=== PATIENT | female | born 1960 | race Hispanic/Latino ===

== ENCOUNTER 2018-08-31 20:12 | Emergency (ER) | payer SELFPAY ==
[~2018-08-31] VITALS: Ht 160 cm; Wt 63.0 kg
[~2018-08-31 20:12] MED LIST: LISINOP/HCTZ1 TA2 PO; NAPROSYN500 MG OR; NO HOME MEDS
[2018-08-31 20:57] LABS: HEMATOCRIT 41.1 % (37.0-47.0); HEMOGLOBIN 14.1 g/dl (12.0-16.0); IMMATURE GRANULOCYTES 0.3 % (0.0-5.0); MEAN CELL VOLUME 99.3 fL CALC (80.0-100.0); MEAN CORPUSCULAR HGB 34.1 pG CALC (26.0-32.0); MEAN CORPUSCULAR HGB CONC 34.3 g/L CALC (32.0-36.0); NEUT# 2.14 thou/uL (2.00-7.15); RED BLOOD COUNT 4.14 mill/uL (4.20-5.60)
[2018-08-31 20:58] LABS: URINE BILIRUBIN - DIPSTICK NEGATIVE (NEGATIVE); URINE BLOOD DIPSTICK NEGATIVE (NEGATIVE); URINE COLOR YELLOW; URINE GLUCOSE - DIPSTICK NEGATIVE (NEGATIVE); URINE KETONE NEGATIVE (NEGATIVE); URINE LEUK ESTERASE NEGATIVE (NEGATIVE); URINE NITRITE - DIPSTICK NEGATIVE (Negative); URINE PH 7.5 (4.5-8.0); URINE PROTEIN - DIPSTICK NEGATIVE (NEG-TRACE); URINE SPECIFIC GRAVITY 1.015; URINE UROBILINOGEN - DIPSTICK 0.2 E.U./dL (0.2)
[2018-08-31 21:11] LABS: ALBUMIN 4.6 g/dL (3.2-5.0); ALKALINE PHOSPHATASE 200 u/l (38-126); ANION GAP 17 (6-22 (CALC)); BILIRUBIN, TOTAL 1.2 mg/dL (0.0-1.4); BUN 7 mg/dL (7-17); BUN/CREATININE RATIO 22 (12-20 (CALC)); CARBON DIOXIDE 25 mmol/l (22-30); CHLORIDE 100 mmol/l (95-108); CPK 376 u/l (30-165); CREATININE 0.3 mg/dL (0.5-1.0); GFR > 60 ML/MIN (>=60 (CALC)); GFR FOR AFR.AMER. > 60 ML/MIN (>=60 (CALC)); POTASSIUM 3.1 mmol/l (3.5-5.1); SGOT/AST 421 u/l (14-36); SODIUM 139 mmol/l (137-146); TOTAL PROTEIN 8.8 g/dL (6.3-8.2)
[2018-08-31 21:23] LABS: MYOGLOBIN 37 ng/mL (0 - 62)
[2018-08-31] MEDS ORDERED: POT CHLORIDE10 ME5 PO (22:32)
[2018-08-31] MEDS ORDERED: ANTIVERT PO (22:32)
[2018-08-31 22:55] VITALS: BP 151/81
== END 2018-08-31 22:55 | disposition home or self-care (01) | DRG 149 ==
LOC: ED 20:12
PROVIDERS: Family Medicine
DX: R42 Dizziness and giddiness (principal); E87.6 Hypokalemia; R74.8 Abnormal levels of other serum enzymes; I10 Essential (primary) hypertension

== ENCOUNTER 2019-09-14 08:52 | Emergency (ER) | payer OTHER ==
[~2019-09-14 08:52] MED LIST changes: +ANTIVERT PO; +POT CHLORIDE10 ME5 PO
[2019-09-14] MEDS ORDERED: VOLTAREN75 MG PO (10:17)
[2019-09-14] MEDS ORDERED: ORPHENADRINE100 MG PO (10:17)
[2019-09-14 10:28] VITALS: BP 152/83
== END 2019-09-14 10:25 | disposition home or self-care (01) ==
LOC: ED 08:52
DX: S16.1XXA Strain of muscle, fascia and tendon at neck level, initial encounter (principal); M47.812 Spondylosis without myelopathy or radiculopathy, cervical region; I10 Essential (primary) hypertension; X58.XXXA Exposure to other specified factors, initial encounter

== ENCOUNTER 2020-10-15 08:02 | Day surgery (SDC) | payer OTHER ==
[~2020-10-15 08:02] MED LIST changes: +ORPHENADRINE100 MG PO; +VOLTAREN75 MG PO
[2020-10-15 10:07] VITALS: BP 142/72
== END 2020-10-15 10:31 | disposition home or self-care (01) ==
LOC: ENDO 08:02
PROVIDERS: ATTEND Surgery
DX: Z12.11 Encounter for screening for malignant neoplasm of colon (principal); K64.8 Other hemorrhoids; I10 Essential (primary) hypertension

== ENCOUNTER 2020-11-16 07:59 | Emergency (ER) | payer OTHER ==
[2020-11-16 09:59] VITALS: BP 120/70
== END 2020-11-16 10:13 | disposition home or self-care (01) ==
LOC: ED 07:59
DX: J06.9 Acute upper respiratory infection, unspecified (principal); I10 Essential (primary) hypertension; Z20.822 Contact with and (suspected) exposure to COVID-19

== ENCOUNTER 2021-03-31 16:19 | Emergency (ER) | payer SELFPAY ==
[~2021-03-31] VITALS: Ht 160 cm; Wt 61.0 kg
[2021-03-31] MEDS ORDERED: VITAMIN D1000 UNIT PO (17:16)
[2021-03-31] MEDS ORDERED: GENTAMICIN SULF5 ML OS (18:20)
[2021-03-31] MEDS ORDERED: CEPHALEXIN500 MG PO (18:20)
[2021-03-31] MEDS ORDERED: (None)3.5 GM OS (18:20)
[2021-03-31] MEDS ORDERED: FLONASE AL50 MCG/ACT (18:20)
[2021-03-31 18:29] VITALS: BP 166/88
== END 2021-03-31 18:29 | disposition home or self-care (01) | DRG 153 ==
LOC: ED 16:19
DX: J32.9 Chronic sinusitis, unspecified (principal); H10.9 Unspecified conjunctivitis; I10 Essential (primary) hypertension

== ENCOUNTER 2021-12-12 07:34 | Emergency (ER) | payer OTHER ==
[~2021-12-12] VITALS: Ht 160 cm; Wt 68.0 kg
[2021-12-12] VITALS (7 sets, daily range): BP systolic 122–172; BP diastolic 70–98
[~2021-12-12 07:34] MED LIST changes: +(None)3.5 GM OS; +CEPHALEXIN500 MG PO; +FLONASE AL50 MCG/ACT; +GENTAMICIN SULF5 ML OS; +VITAMIN D1000 UNIT PO
[2021-12-12] MEDS ORDERED: PREDNISONE20 MG PO (09:38)
[2021-12-12] MEDS ORDERED: EC-NAPROXEN500 MG PO (09:38)
[2021-12-12] MEDS ORDERED: VENTOLIN HFA108 MCG PO (09:38)
== END 2021-12-12 10:58 | disposition home or self-care (01) | DRG 153 ==
LOC: ED 07:34
DX: J32.9 Chronic sinusitis, unspecified (principal); R51.9 Headache, unspecified; M79.10 Myalgia, unspecified site; H74.8X2 Other specified disorders of left middle ear and mastoid; I10 Essential (primary) hypertension; Z20.822 Contact with and (suspected) exposure to COVID-19

== ENCOUNTER 2022-03-17 09:32 | Emergency (ER) | payer OTHER ==
[2022-03-17] VITALS (7 sets, daily range): BP systolic 135–156; BP diastolic 82–95
[~2022-03-17] VITALS: Ht 160 cm; Wt 65.0 kg
[~2022-03-17 09:32] MED LIST changes: +EC-NAPROXEN500 MG PO; +PREDNISONE20 MG PO; +VENTOLIN HFA108 MCG PO
[2022-03-17] MEDS ORDERED: ZPAK PO (10:39)
[2022-03-17] MEDS ORDERED: PROAIR HFA IN (10:39)
[2022-03-17] MEDS ORDERED: PROVENTIL HFA108 MCG PO (10:48)
[2022-03-17] MEDS ORDERED: FLONASE AL50 MCG/ACT (11:11)
== END 2022-03-17 11:16 | disposition home or self-care (01) | DRG 179 ==
LOC: ED 09:32
DX: U07.1 COVID-19 (principal); I10 Essential (primary) hypertension

== ENCOUNTER 2022-06-20 09:03 | Observation (INO) | payer OTHER ==
[~2022-06-20] VITALS: Ht 162.6 cm; Wt 71.9 kg
[2022-06-20] VITALS (24 sets, daily range): BP systolic 88–144; BP diastolic 49–77
[~2022-06-20 09:03] MED LIST changes: +PROAIR HFA IN; +PROVENTIL HFA108 MCG PO; +ZPAK PO
[2022-06-20 09:47] LABS: BASO% 0.6 % (0-3); EOS% 0.4 % (0-8); LYMPH% 22.7 % (15-41); MEAN CELL VOLUME 107.8 fL CALC (80.0-100.0); MEAN CORPUSCULAR HGB 35.6 pG CALC (26.0-32.0); MONO% 7.1 % (2-13); NEUT# 3.55 thou/uL (2.00-7.15); NEUT% 68.2 % (42-76); RED BLOOD COUNT 2.7 mill/uL (4.20-5.60); RED CELL DISTRI WIDTH 15.6 % (11.5-15.5)
[2022-06-20 10:07] LABS: HEMATOCRIT 29.1 % (37.0-47.0); HEMOGLOBIN 9.6 g/dl (12.0-16.0)
[2022-06-20 10:12] LABS: ALKALINE PHOSPHATASE 120 u/l (38-126); ANION GAP 10 (6-22 (CALC)); BILIRUBIN, TOTAL 0.7 mg/dL (0.02-1.3); CARBON DIOXIDE 27 mmol/l (22-30); CHLORIDE 103 mmol/l (95-108); CREATININE 0.6 mg/dL (0.5-1.0); GFR FOR AFR.AMER. > 60 ML/MIN (>=60 (CALC)); GFR OTHER RACES > 60 ML/MIN (>=60 (CALC)); POTASSIUM 3.9 mmol/l (3.5-5.1); SGOT/AST 162 u/l (9-36); SODIUM 137 mmol/l (137-146)
[2022-06-20 10:19] LABS: ALBUMIN 2.8 g/dL (3.2-5.0); BUN 33 mg/dL (8-23); BUN/CREATININE RATIO 55 (12-20 (CALC)); TOTAL PROTEIN 5.9 g/dL (6.3-8.2)
[2022-06-20 18:55] LABS: HEMATOCRIT 25.4 % (37.0-47.0); HEMOGLOBIN 8.4 g/dl (12.0-16.0)
[2022-06-21 00:43] VITALS: BP 110/73
[2022-06-21 03:19] VITALS: BP 116/69
[2022-06-21 04:00] VITALS: BP 116/69
[2022-06-21 04:33] LABS: HEMOGLOBIN 9.5 g/dl (12.0-16.0); MEAN CELL VOLUME 101.8 fL CALC (80.0-100.0); MEAN CORPUSCULAR HGB 33.3 pG CALC (26.0-32.0); MEAN CORPUSCULAR HGB CONC 32.8 g/dL CAL (32.0-36.0); RED BLOOD COUNT 2.85 mill/uL (4.20-5.60); RED CELL DISTRI WIDTH 17.6 % (11.5-15.5)
[2022-06-21 04:51] LABS: ALKALINE PHOSPHATASE 93 u/l (38-126); ANION GAP 3 (6-22 (CALC)); BILIRUBIN, TOTAL 0.9 mg/dL (0.02-1.3); CARBON DIOXIDE 27 mmol/l (22-30); CHLORIDE 111 mmol/l (95-108); CREATININE 0.5 mg/dL (0.5-1.0); GFR FOR AFR.AMER. > 60 ML/MIN (>=60 (CALC)); GFR OTHER RACES > 60 ML/MIN (>=60 (CALC)); MAGNESIUM 1.9 mg/dL (1.6-2.3); POTASSIUM 3.8 mmol/l (3.5-5.1); SGOT/AST 105 u/l (9-36); SODIUM 137 mmol/l (137-146); TOTAL PROTEIN 4.8 g/dL (6.3-8.2)
[2022-06-21 04:53] LABS: ALBUMIN 2.2 g/dL (3.2-5.0); BUN 13 mg/dL (8-23); BUN/CREATININE RATIO 26 (12-20 (CALC))
[2022-06-21 06:31] VITALS: BP 117/78
[2022-06-21 10:04] VITALS: BP 120/63
[2022-06-21 10:33] LABS: HEMOGLOBIN 8.6 g/dl (12.0-16.0)
[2022-06-21 12:33] LABS: HEMATOCRIT 26.5 % (37.0-47.0); HEMOGLOBIN 8.6 g/dl (12.0-16.0)
[2022-06-21 12:54] LABS: AMYLASE 44 u/l (30-110); LIPASE 123 u/l (23-300)
[2022-06-21 18:26] VITALS: BP 141/69
[2022-06-21 18:30] LABS: HEMATOCRIT 25.7 % (37.0-47.0); HEMOGLOBIN 8.4 g/dl (12.0-16.0)
[2022-06-22] VITALS (10 sets, daily range): BP systolic 110–164; BP diastolic 61–89
[2022-06-22 00:15] LABS: HEMOGLOBIN 7.7 g/dl (12.0-16.0)
[2022-06-22 06:11] LABS: HEMATOCRIT 24.3 % (37.0-47.0); HEMOGLOBIN 7.9 g/dl (12.0-16.0); MEAN CELL VOLUME 104.7 fL CALC (80.0-100.0); MEAN CORPUSCULAR HGB 34.1 pG CALC (26.0-32.0); MEAN CORPUSCULAR HGB CONC 32.5 g/dL CAL (32.0-36.0); RED BLOOD COUNT 2.32 mill/uL (4.20-5.60); RED CELL DISTRI WIDTH 18.6 % (11.5-15.5)
[2022-06-22 06:28] LABS: ALBUMIN 2.1 g/dL (3.2-5.0); ALKALINE PHOSPHATASE 85 u/l (38-126); ANION GAP 6 (6-22 (CALC)); BILIRUBIN, TOTAL 0.6 mg/dL (0.02-1.3); BUN 5 mg/dL (8-23); BUN/CREATININE RATIO 11 (12-20 (CALC)); CARBON DIOXIDE 25 mmol/l (22-30); CHLORIDE 111 mmol/l (95-108); CREATININE 0.4 mg/dL (0.5-1.0); GFR FOR AFR.AMER. > 60 ML/MIN (>=60 (CALC)); GFR OTHER RACES > 60 ML/MIN (>=60 (CALC)); POTASSIUM 3.6 mmol/l (3.5-5.1); SGOT/AST 95 u/l (9-36); SODIUM 138 mmol/l (137-146); TOTAL PROTEIN 4.5 g/dL (6.3-8.2)
[2022-06-22 06:33] LABS: MAGNESIUM 1.4 mg/dL (1.6-2.3)
[2022-06-22 11:50] LABS: HEMATOCRIT 25.1 % (37.0-47.0); HEMOGLOBIN 8.2 g/dl (12.0-16.0)
[2022-06-23 03:18] VITALS: BP 108/63
[2022-06-23 04:26] LABS: BASO% 0.4 % (0-3); EOS% 3.2 % (0-8); HEMATOCRIT 23.7 % (37.0-47.0); HEMOGLOBIN 7.9 g/dl (12.0-16.0); IMMATURE GRANULOCYTES 0.2 % (0.0-5.0); LYMPH% 42.6 % (15-41); MEAN CELL VOLUME 104.9 fL CALC (80.0-100.0); MEAN CORPUSCULAR HGB CONC 33.3 g/dL CAL (32.0-36.0); MONO% 9.5 % (2-13); NEUT# 2.03 thou/uL (2.00-7.15); NEUT% 44.1 % (42-76); RED BLOOD COUNT 2.26 mill/uL (4.20-5.60); RED CELL DISTRI WIDTH 18.2 % (11.5-15.5)
[2022-06-23 04:41] LABS: ALBUMIN 2.5 g/dL (3.2-5.0); ALKALINE PHOSPHATASE 89 u/l (38-126); BILIRUBIN, TOTAL 0.7 mg/dL (0.02-1.3); BUN 3 mg/dL (8-23); BUN/CREATININE RATIO 7 (12-20 (CALC)); CHLORIDE 106 mmol/l (95-108); CREATININE 0.5 mg/dL (0.5-1.0); GFR FOR AFR.AMER. > 60 ML/MIN (>=60 (CALC)); GFR OTHER RACES > 60 ML/MIN (>=60 (CALC)); POTASSIUM 3.4 mmol/l (3.5-5.1); SGOT/AST 107 u/l (9-36); SODIUM 137 mmol/l (137-146); TOTAL PROTEIN 5.3 g/dL (6.3-8.2)
[2022-06-23 04:49] LABS: ANION GAP 2 (6-22 (CALC)); CARBON DIOXIDE 32 mmol/l (22-30)
[2022-06-23 05:59] VITALS: BP 139/80
[2022-06-23 08:14] VITALS: BP 138/76
[2022-06-23 08:59] VITALS: BP 119/66
[2022-06-23 09:17] VITALS: BP 136/77
[2022-06-23] MEDS ORDERED: PROTONIX40 M2 PO (10:07)
[2022-06-23] MEDS ORDERED: CARAFATE1 GM PO (10:08)
[2022-06-23] MEDS ORDERED: FE TABS325 MG PO (10:12)
[2022-06-23] MEDS ORDERED: ROBITUSSIN AC10 ML PO (10:13)
== END 2022-06-23 14:20 | disposition home or self-care (01) | DRG 377 ==
LOC: ED 09:03 → ED-I 16:37 → ED 16:50 → MS2 16:51
PROVIDERS: Family Medicine; Nurse Practitioner Family; ADMIT Internal Medicine; ATTEND Internal Medicine
PROC: 30233N1 Transfusion of Nonautologous Red Blood Cells into Peripheral Vein, Percutaneous Approach (ICD-10-PCS; principal; 2022-06-20)
PROC: 30233R1 Transfusion of Nonautologous Platelets into Peripheral Vein, Percutaneous Approach (ICD-10-PCS; 2022-06-22)
PROC: 0DJD8ZZ Inspection of Lower Intestinal Tract, Via Natural or Artificial Opening Endoscopic (ICD-10-PCS; 2022-06-22)
PROC: 0DB78ZX Excision of Stomach, Pylorus, Via Natural or Artificial Opening Endoscopic, Diagnostic (ICD-10-PCS; 2022-06-22)
PROC: 0W3P8ZZ Control Bleeding in Gastrointestinal Tract, Via Natural or Artificial Opening Endoscopic (ICD-10-PCS; 2022-06-22)
PROC: 30233N1 Transfusion of Nonautologous Red Blood Cells into Peripheral Vein, Percutaneous Approach (ICD-10-PCS; 2022-06-23)
DX: K25.4 Chronic or unspecified gastric ulcer with hemorrhage (principal); K85.90 Acute pancreatitis without necrosis or infection, unspecified; D62 Acute posthemorrhagic anemia; E87.20 Acidosis, unspecified; D69.6 Thrombocytopenia, unspecified; K57.30 Diverticulosis of large intestine without perforation or abscess without bleeding; K64.8 Other hemorrhoids; I10 Essential (primary) hypertension; K74.60 Unspecified cirrhosis of liver; Z86.16 Personal history of COVID-19; Z20.822 Contact with and (suspected) exposure to COVID-19
CPT/HCPCS: J1756; J3475; P9016; P9034; Q9967; S0164

== ENCOUNTER 2022-09-17 07:10 | Day surgery (SDC) | payer OTHER ==
[~2022-09-17] VITALS: Ht 162.6 cm; Wt 67.1 kg
[~2022-09-17 07:10] MED LIST changes: +ADVAIR DISK1 IH; +CARAFATE1 GM PO; +FE TABS325 MG PO; +OMEPRAZOLE20 MG PO; +PROTONIX40 M2 PO; +ROBITUSSIN AC10 ML PO
[2022-09-17] MEDS ORDERED: BREZTRI AEROSPH1 AER INHW/SPAC (07:21)
[2022-09-17 09:07] VITALS: BP 126/80
== END 2022-09-17 09:02 | disposition home or self-care (01) | DRG 392 ==
LOC: ENDO 07:10 → ORM 08:00 → ENDO 08:00
PROVIDERS: ATTEND Surgery
PROC: 0DB98ZX Excision of Duodenum, Via Natural or Artificial Opening Endoscopic, Diagnostic (ICD-10-PCS; principal; 2022-09-17)
PROC: 0DB78ZX Excision of Stomach, Pylorus, Via Natural or Artificial Opening Endoscopic, Diagnostic (ICD-10-PCS; 2022-09-17)
DX: K29.50 Unspecified chronic gastritis without bleeding (principal); I85.00 Esophageal varices without bleeding; B96.81 Helicobacter pylori [H. pylori] as the cause of diseases classified elsewhere; K31.9 Disease of stomach and duodenum, unspecified; I10 Essential (primary) hypertension; Z79.899 Other long term (current) drug therapy; Z87.11 Personal history of peptic ulcer disease

== ENCOUNTER 2023-04-29 08:21 | Day surgery (SDC) | payer OTHER ==
[~2023-04-29] VITALS: Ht 157.5 cm; Wt 69.9 kg
[~2023-04-29 08:21] MED LIST changes: +BREZTRI AEROSPH1 AER INHW/SPAC
[2023-04-29 11:04] VITALS: BP 160/87
[2023-05-05] MEDS ORDERED: XCELLENT A 33000 MCG (10:27)
[2023-05-05] MEDS ORDERED: COZAAR25 MG PO (10:27)
== END 2023-04-29 10:45 | disposition home or self-care (01) | DRG 392 ==
LOC: ENDO 08:21 → ORM 11:30 → ENDO 11:55 → ORM 11:55
PROVIDERS: ATTEND Surgery
PROC: 0DB68ZX Excision of Stomach, Via Natural or Artificial Opening Endoscopic, Diagnostic (ICD-10-PCS; principal; 2023-04-29)
PROC: 0DB78ZX Excision of Stomach, Pylorus, Via Natural or Artificial Opening Endoscopic, Diagnostic (ICD-10-PCS; 2023-04-29)
DX: K29.50 Unspecified chronic gastritis without bleeding (principal); K31.9 Disease of stomach and duodenum, unspecified; K74.60 Unspecified cirrhosis of liver; I85.10 Secondary esophageal varices without bleeding; I10 Essential (primary) hypertension; Z87.11 Personal history of peptic ulcer disease; Z86.16 Personal history of COVID-19

== ENCOUNTER → 2023-10-12 | Day surgery (SDC) | payer OTHER ==
[~2023-10-12] VITALS: Ht 160 cm; Wt 66.2 kg
[~2023-10-12] MED LIST changes: +COZAAR25 MG PO; +FAMOTIDINE 10MG/ML 2ML SDV IV ONE; +GLYCOPYRROLATE 0.2 MG/ML IV ONE; +IRON28 M1 PO; +LACTATED RINGER'S 1,000 ML IV ONE; +LIDOCAINE HCL 2% 2ML SDV IV ONE; +PROPOFOL 500 MG/50 ML VIAL IV ONE; +XCELLENT A 33000 MCG
[2023-10-12 11:07] VITALS: BP 116/75
== END | disposition home or self-care (01) | DRG 812 ==
LOC: ORM 08:49
PROVIDERS: ATTEND Surgery
PROC: 0DBP8ZX Excision of Rectum, Via Natural or Artificial Opening Endoscopic, Diagnostic (ICD-10-PCS; principal; 2023-10-12)
PROC: 0DB68ZX Excision of Stomach, Via Natural or Artificial Opening Endoscopic, Diagnostic (ICD-10-PCS; 2023-10-12)
DX: D50.9 Iron deficiency anemia, unspecified (principal); K50.10 Crohn's disease of large intestine without complications; I85.10 Secondary esophageal varices without bleeding; K29.50 Unspecified chronic gastritis without bleeding; B96.81 Helicobacter pylori [H. pylori] as the cause of diseases classified elsewhere; K70.30 Alcoholic cirrhosis of liver without ascites; K64.8 Other hemorrhoids; K44.9 Diaphragmatic hernia without obstruction or gangrene; D69.6 Thrombocytopenia, unspecified; I10 Essential (primary) hypertension; Z87.11 Personal history of peptic ulcer disease

== ENCOUNTER 2024-07-01 09:19 | Emergency (ER) | payer OTHER ==
[2024-07-01] VITALS (12 sets, daily range): BP systolic 138–183; BP diastolic 83–116
[~2024-07-01] VITALS: Ht 160 cm; Wt 56.0 kg
[~2024-07-01 09:19] MED LIST changes: +AMOXICILLIN500 MG PO; +CLARITHROMYCIN500 MG PO; -FAMOTIDINE 10MG/ML 2ML SDV IV ONE; -GLYCOPYRROLATE 0.2 MG/ML IV ONE; -LACTATED RINGER'S 1,000 ML IV ONE; -LIDOCAINE HCL 2% 2ML SDV IV ONE; +METHOCARBAMOL500 MG PO; +NAPROXEN500 MG PO; +PREDNISONE10 MG PO; -PROPOFOL 500 MG/50 ML VIAL IV ONE
[2024-07-01 10:09] LABS: BASO% 0.7 % (0-3); HEMATOCRIT 43.5 % (37.0-47.0); IMMATURE GRANULOCYTES 0.2 % (0.0-5.0); LYMPH% 33.6 % (15-41); MEAN CELL VOLUME 99.3 fL CALC (80.0-100.0); MEAN CORPUSCULAR HGB 34.2 pG CALC (26.0-32.0); MEAN CORPUSCULAR HGB CONC 34.5 g/dL CAL (32.0-36.0); MONO% 9.6 % (2-13); NEUT# 2.2 thou/uL (2.00-7.15); NEUT% 53.9 % (42-76); RED BLOOD COUNT 4.38 mill/uL (4.20-5.60); RED CELL DISTRI WIDTH 12.4 % (11.5-15.5)
[2024-07-01 10:31] LABS: ALBUMIN 4.6 g/dL (3.2-5.0); ALKALINE PHOSPHATASE 139 u/l (38-126); ANION GAP 15 (6-22 (CALC)); BUN 9 mg/dL (8-23); BUN/CREATININE RATIO 25 (12-20 (CALC)); CARBON DIOXIDE 24 mmol/l (22-30); CHLORIDE 101 mmol/l (95-108); CREATININE 0.4 mg/dL (0.5-1.0); ESTIMATED GFR 110 ML/MIN (>=90 (CALC)); POTASSIUM 3.9 mmol/l (3.5-5.1); SODIUM 136 mmol/l (137-146); TOTAL PROTEIN 8.5 g/dL (6.3-8.2)
[2024-07-01 10:36] LABS: SGOT/AST 155 u/l (9-36)
[2024-07-01 11:13] LABS: TSH, 3RD GENERATION 0.88 uIU/mL (0.47 - 4.68)
== END 2024-07-01 12:05 | disposition left against medical advice (07) | DRG 310 ==
LOC: ED 09:19
PROVIDERS: Family Medicine
DX: R00.2 Palpitations (principal); R07.9 Chest pain, unspecified; I10 Essential (primary) hypertension; Z86.16 Personal history of COVID-19; Z53.29 Procedure and treatment not carried out because of patient's decision for other reasons